=== PATIENT | male | born 1980 | race Caucasian/White ===

== ENCOUNTER 2019-02-13 05:08 | Emergency (ER) | payer SELFPAY ==
[2019-02-13 05:14] VITALS: BP 108/89; TEMP 96.5; O2SAT 98
== END 2019-02-13 05:50 | disposition left against medical advice (07) ==
LOC: ER 05:08
DX: R53.1 Weakness (principal); Z53.21 Procedure and treatment not carried out due to patient leaving prior to being seen by health care provider